=== PATIENT | female | born 1960 | race Caucasian/White ===

== ENCOUNTER 2019-04-29 21:19 | Emergency (ER) | payer MEDICARE, OTHER ==
[2019-04-29] MEDS: SOD CHLORIDE 0.9% 500 ML IV (22:49)
[2019-04-29] MEDS: HYDROmorphONE 0.5 MG/0.5 ML SYG IV (22:49)
[2019-04-29] MEDS ORDERED: LORAZEPAM 1 MG TAB PO (23:00)
[2019-04-29] MEDS: HYDROmorphONE 2 MG/ML SYG IV (23:58)
== END 2019-04-30 00:40 | disposition home or self-care (01) ==
LOC: E/R 04-30 00:40
DX: S09.90XA Unspecified injury of head, initial encounter (principal); R40.2142 Coma scale, eyes open, spontaneous, at arrival to emergency department; R40.2362 Coma scale, best motor response, obeys commands, at arrival to emergency department; R40.2252 Coma scale, best verbal response, oriented, at arrival to emergency department; R51 Headache; W18.39XA Other fall on same level, initial encounter; Y92.9 Unspecified place or not applicable
CPT/HCPCS: 70450; 96374; 96376; 99285-25